=== PATIENT | female | born 1960 | race Two or more races ===

== ENCOUNTER 2017-03-24 17:22 | Emergency (ER) | payer OTHER ==
[~2017-03-24] VITALS: Ht 152.4 cm; Wt 60.0 kg
[2017-03-24 17:24] VITALS: Ht 152.4 cm; Wt 60.0 kg
[2017-03-24] MEDS ORDERED: IBUPROFEN 600 MG TAB PO ONE (18:00)
[2017-03-24] MEDS ORDERED: ONDANSETRON (ODT) 4 MG TAB ODT STA (18:00)
[2017-03-24] MEDS ORDERED: FAMOTIDINE 20 MG TAB PO ONE (18:00)
--- NOTE | 2017-03-24 18:27 | RADRPT ---
PROCEDURE: XR Chest. CLINICAL INDICATION: Cough TECHNIQUE: Chest AP portable. COMPARISON: No comparison available. FINDINGS: The mediastinal structures are unremarkable. The heart is normal in size and configuration. The pu lmonary vascularity is normal. The lung stewart are unremarkable. No consolidation is identified. The pleural spaces are unremarkable. The axial skeleton is unremarkable. IMPRESSION: No active intrathoracic disease. RPTAT: [facility] .Geovanny Lindsey MD, MD Date Time Electronically viewed and signed by .Geovanny Lindsey MD, on 03/24/2017 18:27 .B/
[2017-03-24 18:58] LABS: URINE BLOOD (Dip) POC Trace-intact (NEGATIVE)
[2017-03-24] MEDS ORDERED: IBUP-1542 PO (19:04)
[2017-03-24] MEDS ORDERED: AZIT250T94 PO (19:04)
[2017-03-24] MEDS ORDERED: D-ME473S18 PO (19:05)
--- NOTE | 2017-03-24 19:11 | ERD ---
ER Documentation Chief Complaint Date/Time DATE: 03/24/17 TIME: 19:10 Chief Complaint pt bib family with c/o fever, nausea, aches and pains, denies AP HPI This 57-year-old female presents with a 2 day history of fever and body aches and productive cough. She denies dysuria, vomiting, abdominal pain, neck stiffness, rashes. She has nausea. ROS All systems reviewed and are negative except as per history of present illness. Medications Home Meds Active Scripts Dextromethorphan Hb-Promethazine Hcl (Promethazine DM Syrup) 473 Ml Syrup, 5 ML PO Q6H Y for COUGH, #4 OZ Prov:MERLENE VARNER MD 03/24/17 Azithromycin* (Zithromax*) 250 Mg Tablet, 250 MG PO .ZPACK DIRECTED, #6 TAB TAKE 500 MG (2 TABS) THE FIRST DAY THEN 250 MG (1 TAB) DAYS 2-5 Prov:MERLENE VARNER MD 03/24/17 Ibuprofen* (Motrin*) 600 Mg Tab, 600 MG PO Q6, #15 TAB Prov:MERLENE VARNER MD 03/24/17 Allergies Allergies: Coded Allergies: No Known Drug Allergies (Verified Allergy, Unknown, 03/05/15) PMhx/Soc History of Surgery: Yes (Cholecystectomy, appendectomy) Anesthesia Reaction: No Hx Neurological Disorder: No Hx Respiratory Disorders: No Hx Cardiac Disorders: No Hx Psychiatric Problems: No Hx Miscellaneous Medical Probl: Yes (Diabetes, GERD, arthritis.) Hx Alcohol Use: No Hx Substance Use: No Hx Tobacco Use: No Smoking Status: Never smoker Physical Exam Vitals Vital Signs Date Time Temp Pulse Resp B/P Pulse Ox O2 Delivery O2 Flow Rate FiO2 03/24/17 17:24 102.8 103 18 126/65 98 Physical Exam Const: [] Alert, [id number] Head: Atraumatic Eyes: Normal Conjunctiva ENT: Normal External Ears, Nose and Mouth. TMs and oropharynx normal Neck: Full range of motion..~ No meningismus. Resp: Clear to auscultation bilaterally. Coarse cough without rales or wheezing retractions appreciated Cardio: Regular rate and rhythm, no murmurs Abd: Soft, non tender, non distended. Normal bowel sounds Skin: No petechiae or rashes Back: No midline or flank tenderness Ext: No cyanosis, or edema Neur: Awake and alert Psych: Normal Mood and Affect Results 24 hrs Laboratory Tests Test 03/24/17 19:00 Bedside Urine pH (LAB) 8.5 Bedside Urine Protein (LAB) 2+ Bedside Urine Glucose (UA) Negative Bedside Urine Ketones (LAB) Negative Bedside Urine Blood Trace-intact Bedside Urine Nitrite (LAB) Negative Bedside Urine Leukocyte Esterase (L Negative Current Medications Medications (Trade) Dose Ordered Sig/Mayur Route PRN Reason Start Time Stop Time Status Last Admin Dose Admin Ibuprofen (Motrin) 600 mg ONCE ONCE PO 03/24/17 18:00 03/24/17 18:01 DC 03/24/17 18:36 Famotidine (Pepcid) 20 mg ONCE ONCE PO 03/24/17 18:00 03/24/17 18:01 DC 03/24/17 18:36 Ondansetron HCl (Zofran Odt) 8 mg ONCE STAT ODT 03/24/17 18:00 03/24/17 18:01 DC 03/24/17 18:37 Procedures/MDM It is negative for leukocytes, nitrates and glucose. There is hemoglobin and protein. Chest X-ray 1V Interpreted by me: Soft Tissue: No acute abnormalities Bones: No acute abnormalities Mediastinum/Cardiac Silhouette/Lungs: [No acute abnormalities]. Impression have normal 1 view chest x-ray Patient is given ibuprofen for fever. Patient presents with fever and URI symptoms without signs of pneumonia, respirations no signs to suggest acute abdomen, sepsis, meningitis, additional causes of presenting complaints. She will treated with Zithromax, ibuprofen promethazine although she may have an acute viral illness. Patient is advised to follow-up with primary care doctor this week return to the ER for new or worsening symptoms. The patient was stable with no new complaints during the ER course. Clinically, there is no current evidence to suggest meningitis, sepsis, acute abdomen, pneumonia, acute coronary syndrome, pulmonary embolism, or any other emergent condition appearing to require further evaluation or hospitalization. The patient should certainly return for any new or worsening symptoms per the aftercare instructions. They should otherwise follow-up with her primary care doctor for reevaluation this week. Departure Diagnosis: Primary Impression: Upper respiratory infection URI type: unspecified URI Qualified Code: J06.9 - Upper respiratory tract infection, unspecified type Condition: Stable Patient Instructions: Acute Bronchitis, Fever Control (Adult) Additional Instructions: X RAY Y ORINA NORMAL. VAMOS A TRATAR PARA BRONQUITIS. Cheque otro vez con erazo doctor primario en el proximo breaux or regresa para mas o nueva simptomas. CONTINUA TYLENOL CADA 4 HORAS. MERLENE VARNER MD March 24, 2017 19:11
[2017-03-24 19:47] VITALS: BP 117/59; PULSE 90; RESP 20; TEMP 100.8
== END 2017-03-24 19:51 | disposition home or self-care (01) ==
LOC: FTE 17:22
DX: J06.9 Acute upper respiratory infection, unspecified (principal); R11.0 Nausea; E11.9 Type 2 diabetes mellitus without complications
CPT/HCPCS: 71010; 81003

== ENCOUNTER 2017-07-25 22:16 | Emergency (ER) | payer OTHER ==
[~2017-07-25] VITALS: Ht 160 cm; Wt 78.0 kg
[~2017-07-25 22:16] MED LIST: AZIT250T94 PO; D-ME473S18 PO; IBUP-1542 PO
[2017-07-25 22:21] VITALS: Ht 160 cm; Wt 78.0 kg
[2017-07-26] MEDS ORDERED: ACETAMINOPHEN 325 MG TAB PO ONE
[2017-07-26] MEDS ORDERED: PENICILLIN G BENZ 1.2 MIL UNIT SYG IM ONE
[2017-07-26] MEDS ORDERED: DEXAMETHASONE 10 MG/ML 1 ML INJ IM ONE
--- NOTE | 2017-07-26 00:10 | ERD ---
ER Documentation Chief Complaint Date/Time DATE: 07/26/17 TIME: 00:07 Chief Complaint sore throat w/ fever x 2 days, body pain HPI 56 year old english speaking female here with presents To the ED with sore throat fever for 1 day. She also complains of body aches. She states that her was sick last week. Says she has pain when she swallows. Denies chest pain or cough or shortness of breath. No other complaints. ROS All systems reviewed and are negative except as per history of present illness. Medications Home Meds Active Scripts Acetaminophen* (Tylophen*) 500 Mg Capsule, 1 CAP PO Q6H Y for PAIN AND OR ELEVATED TEMP, #20 CAP Prov:RITCHIE JUNG PA-C 07/26/17 Dextromethorphan Hb-Promethazine Hcl (Promethazine DM Syrup) 473 Ml Syrup, 5 ML PO Q6H Y for COUGH, #4 OZ Prov:MERLENE VARNER MD 03/24/17 Azithromycin* (Zithromax*) 250 Mg Tablet, 250 MG PO .ZPACK DIRECTED, #6 TAB TAKE 500 MG (2 TABS) THE FIRST DAY THEN 250 MG (1 TAB) DAYS 2-5 Prov:MERLENE VARNER MD 03/24/17 Ibuprofen* (Motrin*) 600 Mg Tab, 600 MG PO Q6, #15 TAB Prov:MERLENE VARNER MD 03/24/17 Allergies Allergies: Coded Allergies: No Known Drug Allergies (Verified Allergy, Unknown, 03/05/15) PMhx/Soc History of Surgery: Yes (Cholecystectomy, appendectomy) Anesthesia Reaction: No Hx Neurological Disorder: No Hx Respiratory Disorders: No Hx Cardiac Disorders: No Hx Psychiatric Problems: No Hx Miscellaneous Medical Probl: Yes (Diabetes, GERD, arthritis.) Hx Alcohol Use: No Hx Substance Use: No Hx Tobacco Use: No Smoking Status: Never smoker Physical Exam Vitals Vital Signs Date Time Temp Pulse Resp B/P Pulse Ox O2 Delivery O2 Flow Rate FiO2 07/25/17 22:21 102.0 95 20 163/80 99 Physical Exam GENERAL: Well-developed, well-nourished female. Appears in no acute distress. HEAD: Normocephalic, atraumatic. EYES: Pupils are equally reactive bilaterally. EOMs grossly intact. No conjunctival erythema. ENT: Moist mucous membranes. No uvula deviation. No kissing tonsils. Bilaterally enlarged tonsils, erythematous, swollen with bilateral exudates. NECK: Supple. No lymphadenopathy or thyromegaly. No meningismus. negative kernig. negative brudinski. LUNG: Clear to auscultation bilaterally. No rhonchi, wheezing, rales or coarse breath sounds. HEART: Regular rate and rhythm. No murmurs, rubs or gallops. Extremities: Equal pulses bilaterally. No peripheral clubbing, cyanosis or edema. No unilateral leg swelling. NEUROLOGIC: Alert and oriented. Moving all four extremities. 5/5 strength in all extremities. Normal speech. Steady gait. SKIN: Normal color. Warm and dry. No rashes or lesions. Capillary refill < 2 seconds Results 24 hrs Current Medications Medications (Trade) Dose Ordered Sig/Mayur Route PRN Reason Start Time Stop Time Status Last Admin Dose Admin Penicillin G Benzathine (Bicillin La) 1,200,000 units ONCE ONCE IM 07/26/17 00:00 07/26/17 00:01 DC 07/26/17 00:27 Dexamethasone (Decadron) 10 mg ONCE ONCE IM 07/26/17 00:00 07/26/17 00:01 DC 07/26/17 00:08 Acetaminophen (Tylenol Tab) 650 mg ONCE ONCE PO 07/26/17 00:00 07/26/17 00:01 DC 07/26/17 00:06 Procedures/MDM ER COURSE: I kept the patient and/or family informed of laboratory and diagnostic imaging results throughout the emergency room course. MEDICAL DECISION MAKING: This is a 57-year-old female who presents with sore throat 1 day. Vital signs were reviewed. Patient has a temperature of 102 here in the ED. Patient is not hypoxic. Patient's symptoms are consistent with strep pharyngitis. Patient was given Decadron, penicillin and Tylenol in the ED. Tolerated well with no adverse reaction. Low suspicion for peritonsillar abscess, mononucleosis, dental abscess. Temperature is down trending. Patient is stable for outpatient therapy. Patient is not toxic or ill-appearing. DISCHARGE: At this time, patient is stable for discharge and outpatient management with no new complaints during the ER course. Patient was sent home with Tylenol. Patient will be discharged home with instructions to recheck for new or worsening symptoms such as fever, nausea, weakness, LOC and to follow up with primary care in the next 1-2 days. Patient was advised to return to the ER for any new or worsening symptoms. Plan was discussed and patient and/or family understands and agrees. Home instructions were given. Departure Diagnosis: Primary Impression: Pharyngitis Pharyngitis/tonsillitis etiology: streptococcus Qualified Code: J02.0 - Pharyngitis due to Streptococcus species Condition: Stable RITCHIE JUNG PA-C Jul 26, 2017 00:10
[2017-07-26] MEDS ORDERED: ACET500C5 PO (00:11)
[2017-07-26 00:35] VITALS: BP 143/67; PULSE 86; RESP 18; TEMP 100.2
== END 2017-07-26 00:40 | disposition home or self-care (01) ==
LOC: FTE 22:16
DX: J02.0 Streptococcal pharyngitis (principal); E11.9 Type 2 diabetes mellitus without complications
CPT/HCPCS: 96372; 99284; J0561; J1100